=== PATIENT | female | born 2000 | race Caucasian/White ===

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

== ENCOUNTER 2022-07-06 12:20 | Emergency (ER) | payer OTHER ==
[2022-07-06] MEDS ORDERED: ACETAMINOPHEN TAB 325 MG TAB PO STA (13:30)
--- NOTE | 2022-07-06 13:35 | ED ---
URI HPI - General Chief Complaint: Upper Respiratory Infection Stated Complaint: sob Time Seen by Provider: 07/06/22 13:23 Source: patient, family, RN notes reviewed, old records reviewed Mode of arrival: ambulatory Limitations: no limitations - History of Present Illness Initial Comments: 22-year-old female presents emergency room with cough, nasal congestion, sore throat, fever and lesions on the tip of her tongue since the day after [place]. Other family members sick with similar illnesses. Patient states that she is a daily smoker marijuana. MD Complaint: fever, cough, sore throat, nasal congestion, other (tongue lesion) Severity scale (1-10): 5 Quality: aching Context: sick contacts (family with similar symptoms) Treatments Prior to Arrival: none - Related Data Home Medications Medication Instructions Recorded Confirmed No Known Home Medications 07/06/22 07/06/22 Allergies Allergy/AdvReac Type Severity Reaction Status Date / Time No Known Allergies Allergy Verified 07/06/22 14:09 Review of Systems ROS Statement: Those systems with pertinent positive or pertinent negative responses have been documented in the HPI. ROS Other: All systems not noted in ROS Statement are negative. Past Medical History Additional Past Medical History / Comment(s): ORTHOSTATIC HYPOTENSION, depression, anxiety History of Any Multi-Drug Resistant Organisms: None Reported Past Surgical History: Orthopedic Surgery Past Psychological History: ADD/ADHD, Anxiety, Depression Smoking Status: Never smoker Past Alcohol Use History: None Reported Past Drug Use History: Marijuana General Exam Limitations: no limitations General appearance: alert, in no apparent distress Head exam: Present: atraumatic, normocephalic Eye exam: Absent: scleral icterus, conjunctival injection, periorbital swelling ENT exam: Present: mucous membranes moist, other (2 small erythematous lesions on the tip of the tongue, oropharynx clear, soft and hard palate clear) Expanded Mouth exam: Present: normal external inspection, tongue normal, tongue elevation. Absent: drooling, trismus, muffled voice Throat exam: negative: tonsillar erythema, tonsillomegaly, tonsillar exudate, R peritonsillar mass, L peritonsillar mass Neck exam: Present: full ROM. Absent: tenderness, meningismus, lymphadenopathy Respiratory exam: Present: normal lung sounds bilaterally. Absent: respiratory distress, accessory muscle use Cardiovascular Exam: Present: regular rate Neurological exam: Present: alert, oriented X3, normal gait Psychiatric exam: Present: normal affect, normal mood Skin exam: Present: warm, dry, normal color. Absent: cyanosis, diaphoretic, petechiae, pallor Course Vital Signs 07/06/22 07/06/22 07/06/22 12:41 12:42 13:46 Temperature 97.8 F 98.9 F Pulse Rate 86 86 72 Respiratory 20 20 16 Rate Blood Pressure 107/72 107/72 110/68 O2 Sat by Pulse 98 98 99 Oximetry 07/06/22 14:18 Temperature 98 F Pulse Rate 70 Respiratory 16 Rate Blood Pressure 110/66 O2 Sat by Pulse 98 Oximetry Medical Decision Making - Medical Decision Making Chest x-ray reviewed by me negative for any acute process. Influenza swabs are negative. Her test is negative. Patient is well-appearing and vital signs are stable. Lungs clear to auscultation. This is likely a viral illness as other family members have similar symptoms. Discharged to increase her fluid intake and follow-up with her primary care doctor. Case discussed with Dr. Banks. - Lab Data Lab Results 07/06/22 07/06/22 Range/Units 12:49 12:52 Urine HCG, Qual Not Detected (Not Detectd) Influenza Type A (PCR) Not Detected (Not Detectd) Influenza Type B (PCR) Not Detected (Not Detectd) RSV (PCR) Not Detected (Not Detectd) SARS-CoV-2 (PCR) Not Detected (Not Detectd) Disposition Clinical Impression: Upper respiratory tract infection Disposition: HOME SELF-CARE Condition: Good Instructions (If sedation given, give patient instructions): Upper Respiratory Infection (ED) Additional Instructions: Increase your fluid intake, Tylenol and or Motrin for any body aches or fevers. Also take vitamin C, vitamin D and zinc daily to improve your immune health. Follow-up with your primary care doctor next week. Return to the emergency room with any new or concerning symptoms. You should be 24 hours without a fever before going back into public to prevent spreading of an illness. Stop smoking marijuana as this will lengthen the duration of any illness and cause future health problems Is patient prescribed a controlled substance at d/c from ED?: No Referrals: None,Stated [Primary Care Provider] - 1-2 days Time of Disposition: 14:04
[2022-07-06 13:53] VITALS: RESP 16
--- NOTE | 2022-07-06 13:57 | XR ---
EXAMINATION TYPE: XR chest 2V DATE OF EXAM: 07/06/2022 1:41 PM COMPARISON: Chest radiographs from 05/31/2019 TECHNIQUE: XR chest 2V Portable AP radiograph of the chest. CLINICAL INDICATION:Female, 22 years old with history of sob and upper resp symptoms; FINDINGS: Lungs/Pleura: There is no evidence of pleural effusion, focal consolidation, or pneumothorax. Pulmonary vascularity: Unremarkable. Heart/mediastinum: Cardiomediastinal silhouette is unremarkable. Musculoskeletal: No acute osseous pathology. IMPRESSION: No acute cardiopulmonary disease/process.
[2022-07-06 14:19] VITALS: BP 110/66; PULSE 70; TEMP 98
== END 2022-07-06 14:19 | disposition home or self-care (01) ==
LOC: EC 12:20
DX: J06.9 Acute upper respiratory infection, unspecified (principal); F41.9 Anxiety disorder, unspecified; F32.A Depression, unspecified; F12.90 Cannabis use, unspecified, uncomplicated; Z20.822 Contact with and (suspected) exposure to COVID-19
CPT/HCPCS: 71046; 81025; 87636; 99285